=== PATIENT | female | born 1960 | race Caucasian/White ===

== ENCOUNTER → 2020-04-15 09:19 | Outpatient (BNVA) | payer OTHER, SELFPAY | PROVIDERS: PCP Internal Medicine; Referring Provider Internal Medicine; Visit Provider Physician Assistant | DX: E66.9 Obesity, unspecified (principal); Z68.39 Body mass index [BMI] 39.0-39.9, adult | CPT/HCPCS: 99202 ==

== ENCOUNTER → 2020-05-06 08:35 | Outpatient (BNVA) | payer OTHER, SELFPAY | PROVIDERS: PCP Internal Medicine; Referring Provider Internal Medicine; Visit Provider Dietitian, Registered | DX: Z76.89 Persons encountering health services in other specified circumstances (principal) ==

== ENCOUNTER → 2020-05-12 08:23 | Outpatient (BNVA) | payer OTHER, SELFPAY | PROVIDERS: PCP Internal Medicine; Referring Provider Internal Medicine; Visit Provider Physician Assistant | DX: Z76.89 Persons encountering health services in other specified circumstances (principal) ==

== ENCOUNTER → 2020-06-06 08:54 | Outpatient (BNVA) | payer OTHER, SELFPAY | PROVIDERS: PCP Internal Medicine; Visit Provider Physician Assistant | DX: Z76.89 Persons encountering health services in other specified circumstances (principal) ==

== ENCOUNTER → 2020-06-17 09:58 | Outpatient (BNVA) | payer OTHER, SELFPAY | PROVIDERS: PCP Internal Medicine; Visit Provider Internal Medicine Pulmonary Disease | DX: J84.10 Pulmonary fibrosis, unspecified (principal); Z99.81 Dependence on supplemental oxygen | CPT/HCPCS: 99202 ==

== ENCOUNTER → 2020-07-15 16:17 | Outpatient (BNVA) | payer OTHER, SELFPAY | PROVIDERS: PCP Internal Medicine; Visit Provider Surgery ==

== ENCOUNTER 2020-07-20 08:26 | Outpatient (REF) | payer OTHER, SELFPAY ==
--- NOTE | ~2020-07-20 | XR_ITS ---
EXAMINATION: XR CHEST CLINICAL INFORMATION: Obesity COMPARISON: None TECHNIQUE: 2 views of the chest were obtained. FINDINGS: The cardiac silhouette does not appear enlarged. Hilar and mediastinal contours are unremarkable. There lung volumes are low. There are increased interstitial markings. Appearance is questionable for an atypical interstitial pneumonia. Differential would include interstitial lung disease and interstitial pulmonary edema. There is no pleural effusion or pneumothorax. There are degenerative changes of the spine. XR/XR chest 2V IMPRESSION: Increased interstitial markings. Differential would include an atypical interstitial pneumonia, interstitial lung disease and interstitial pulmonary edema. Clinical correlation is recommended. Chest x-ray or chest CT follow-up may be helpful.
--- NOTE | 2020-07-20 09:17 | ECG_ITS ---
Test Reason : OBESITY Blood Pressure : / mmHG Vent. Rate : 077 BPM Atrial Rate : 077 BPM P-R Int : 128 ms QRS Dur : 096 ms QT Int : 406 ms P-R-T Axes : 017 066 -30 degrees QTc Int : 459 ms Normal sinus rhythm Nonspecific T wave abnormality Abnormal ECG No previous ECGs available Referred By: Zoran Correia Electronically Signed By:Nelson Hurt
[2020-07-20 09:50] LABS: MANUAL DIFF FLAG NO
[2020-07-20 10:04] LABS: Basophils Absolute Auto 0.1 X10*3/uL (0.0-0.2); Basophils Percent Auto 0.8 % (0-2); Eosinophils Absolute Auto 0.2 X10*3/uL (0.0-0.4); Eosinophils Percent Auto 2.5 % (0-4); Hematocrit 43.9 % (37-47); Hemoglobin 14.3 g/dl (12.0-16.0); Imm Gran Abs Auto 0.01 X10*3/uL (0.00-0.03); Imm Gran Pct Auto 0.2 % (0.0-0.4); Lymphocytes Absolute Auto 1.8 X10*3/uL (1.2-4.9); Lymphocytes Percent Auto 30.1 % (20-40); Mean Corpuscular HGB Conc 32.6 g/dl (31.0-35.0); Mean Corpuscular Hemoglobin 30.6 pg (27.0-33.0); Mean Corpuscular Volume 93.8 fL (80-98); Mean Platelet Volume 11.9 fL (9.4-12.3); Monocytes Absolute Auto 0.4 X10*3/uL (0.1-1.2); Neutrophils Absolute Auto 3.6 X10*3/uL (2.0-8.3); Neutrophils Percent Auto 59.4 % (45-73); Platelet Count 195 X10*3/uL (160-400); Red Blood Count 4.68 X10*6/uL (4.20-5.50); Red Cell Distribution Width 11.6 % (11.0-16.0)
[2020-07-20 10:23] LABS: Estimated Average Glucose 128 mg/dL; Hemoglobin A1c % 6.1 %
[2020-07-20 10:30] LABS: Alanine Aminotransferase 29 U/L (0-31); Albumin Level 4.2 g/dL (3.5-5.0); Alkaline Phosphatase 65 U/L (39-117); Anion Gap 13 (12-20); Aspartate Amino Transferase 29 U/L (5-31); Bilirubin Total 1.9 mg/dL (0.0-1.0); Blood Urea Nitrogen 24 mg/dL (9-16); C Reactive Protein 0.84 mg/dL (< or = 0.50); Calcium 9.4 mg/dL (8.4-10.2); Carbon Dioxide 28 mmol/L (22-29); Chloride 103 mmol/L (96-108); Cholesterol 176 mg/dL; Estimated Glomerular Filt Rate > 60; Glucose Random 169 mg/dL (60-115); HDL Cholesterol 45 mg/dL; LDL Cholesterol Calculated 101 mg/dl; Potassium 4.7 mmol/L (3.3-5.1); Sodium 139 mmol/L (135-145); Total Protein 7.4 g/dL (6.5-8.0); Triglycerides 152 mg/dL
[2020-07-20 10:53] LABS: Ferritin 106 ng/mL (10-250); TSH reflex Free T4 1.72 uIU/mL (0.32-4.0); Vitamin D 25-OH Total 27.8 ng/mL (>30)
[2020-07-20 11:06] LABS: Folate 16.9 ng/mL (> or = 4.0); Vitamin B12 887 pg/mL (200-900)
[2020-07-21 06:32] LABS: Insulin Level Total 23.9 uIU/mL
[2020-07-21 14:27] LABS: H Pylori Breath Test NOT DETECTED (NOT DETECTED)
[2020-07-22 10:37] LABS: Calcium (PTHI) 9.4 mg/dL (8.6-10.4); PTHI 75 pg/mL (14-64)
[2020-07-24 06:37] LABS: Vitamin B1 13 nmol/L (8-30)
[2020-07-25 02:31] LABS: Vitamin A 32 mcg/dL (38-98)
[2020-07-26 00:52] LABS: Zinc 79 mcg/dL (60-130)
== END 2020-07-20 08:27 | disposition home or self-care (01) ==
LOC: HO.LAB 08:26
PROVIDERS: PCP Internal Medicine; Visit Provider Surgery
DX: E66.9 Obesity, unspecified (principal); E78.5 Hyperlipidemia, unspecified; I25.10 Atherosclerotic heart disease of native coronary artery without angina pectoris; J84.10 Pulmonary fibrosis, unspecified; Z71.3 Dietary counseling and surveillance; Z99.81 Dependence on supplemental oxygen; Z68.37 Body mass index [BMI] 37.0-37.9, adult; Z11.0 Encounter for screening for intestinal infectious diseases
CPT/HCPCS: 36415; 71046; 80053; 80061; 82306; 82607; 82728; 82746; 83013; 83036; 83525; 83970; 84425; 84443; 84590; 84630; 85025; 86140; 93005; 99211

== ENCOUNTER → 2020-08-01 08:28 | Outpatient (BNVA) | payer OTHER, SELFPAY | PROVIDERS: PCP Internal Medicine; Visit Provider Surgery ==

== ENCOUNTER 2020-08-03 09:37 | Outpatient (REF) | payer OTHER, SELFPAY ==
--- NOTE | ~2020-08-03 | FL_ITS ---
EXAMINATION: XR GI SERIES CLINICAL INFORMATION: Obesity COMPARISON: None TECHNIQUE: Upper GI was performed using thin and thick barium and effervescent granules. FINDINGS: Esophageal motility is normal. There is a small sliding-type hiatal hernia. There is gastroesophageal reflux. The stomach and duodenum are normal-appearing. No fold thickening, mass, ulcer or stricture is seen. FLUOROSCOPY TIME: 1.4 minutes DOSE AREA PRODUCT: 15.5 prado per centimeter squared, total dose 53 mgy and 31 saved fluoroscopic images FL/FL upper GI series IMPRESSION: Small sliding-type hiatal hernia and gastroesophageal reflux.
--- NOTE | ~2020-08-03 | US_ITS ---
EXAMINATION: US COMPLETE ABDOMEN WITH LIVER ELASTOGRAPHY CLINICAL INFORMATION: Obesity COMPARISON: None. TECHNIQUE: Real-time imaging of the abdominal viscera. Noninvasive ultrasound liver fibrosis assessment is performed using Papa ElastPQ point quantification shear wave elastography (pSWE) with a C5-2 MHz transducer. Multiple elastography samples are obtained. FINDINGS: PANCREAS: Not well visualized due to bowel gas ABDOMINAL AORTA: The proximal, middle, and distal aortic segments are normal in caliber. INFERIOR VENA CAVA: Visualized portions are normal. LIVER: Liver echotexture is increased. The liver demonstrates normal size and contour. No focal lesion or intrahepatic biliary duct dilatation. The right lobe measures 14 cm in length. The left lobe measures 8 cm in length. Portal flow is normal/hepatopedal. Shear wave liver elastography median stiffness is 1.2 m/s (reference: normal median stiffness is 1.3 m/s or less). IQR/median stiffness to assess sampling precision is 0.3 (reference: good quality data set is IQR/median stiffness of 0.15 or less). GALLBLADDER: Normal. The gallbladder is physiologically distended without evidence of stones, sludge, polyps, wall thickening or pericholecystic fluid. COMMON BILE DUCT: Normal in caliber measuring 0.4 cm in diameter. RIGHT KIDNEY: There is a 1.7 x 1.5 x 1.8 cm cyst midpole. No hydronephrosis. No renal calculi or focal mass. The kidney measures 11.5 cm in maximum dimension. LEFT KIDNEY: Normal. No hydronephrosis. No renal calculi or focal parenchymal lesions. The kidney measures 10 cm in maximum dimension. SPLEEN: Normal. The spleen measures 10 cm in maximum dimension. FREE FLUID: None. US/US abdomen comp w elastography IMPRESSION: 1. Echogenic liver probably representing fatty infiltration. Limited visualization of the pancreas. Small left renal cyst. 2. Liver elastography: Slightly limited due to sampling error but normal. REFERENCE: Society of Radiologists in Ultrasound Liver Stiffness Thresholds (2020): LIVER STIFFNESS THRESHOLDS: *Liver Stiffness equal or less than 1.3 m/s: High probability of being normal. *Liver Stiffness less than 1.7 m/s: In the absence of other known clinical signs, rules out compensated advanced chronic liver disease. *Liver Stiffness 1.7-2.1 m/s: Suggestive of compensated advanced chronic liver disease but need further test for confirmation. *Liver Stiffness over 2.1 m/s: Rules in compensated advanced chronic liver disease. *Liver Stiffness over 2.4 m/s: Suggestive of clinically significant portal hypertension. QUALITY OF DATA SET: *IQR/Median value equal or less than 0.15 implies a quality data set. *IQR/Median value over 0.15 implies a poor quality data set. SIGNIFICANT CHANGE FROM PRIOR EXAM: Significant change if liver stiffness measurement is 10% or greater from prior exam. OTHER CONSIDERATIONS: The stage of liver fibrosis may be overestimated in the setting of acute hepatitis, liver inflammation, elevated liver function tests, hepatic vascular congestion, obstructive cholestasis, non-fasting state, and infiltrative diseases such as amyloidosis and lymphoma. In some patients with NAFLD, the liver stiffness thresholds for compensated advanced chronic liver disease may be lower. In causes other than viral hepatitis and NAFLD, liver stiffness thresholds are not well established.
== END 2020-08-03 09:38 | disposition home or self-care (01) ==
LOC: HO.US 09:37
PROVIDERS: Visit Provider Surgery
DX: Z01.818 Encounter for other preprocedural examination (principal); Z99.81 Dependence on supplemental oxygen; J84.10 Pulmonary fibrosis, unspecified; I25.10 Atherosclerotic heart disease of native coronary artery without angina pectoris; E78.5 Hyperlipidemia, unspecified; E66.01 Morbid (severe) obesity due to excess calories; K21.9 Gastro-esophageal reflux disease without esophagitis; Z68.37 Body mass index [BMI] 37.0-37.9, adult
CPT/HCPCS: 74240; 76705; 76981

== ENCOUNTER → 2020-08-18 08:14 | Outpatient (BNVA) | payer OTHER, SELFPAY | PROVIDERS: PCP Internal Medicine; Visit Provider Dietitian, Registered ==

== ENCOUNTER → 2020-08-22 07:33 | Outpatient (BNVA) | payer OTHER, SELFPAY | PROVIDERS: PCP Internal Medicine; Visit Provider Surgery ==

== ENCOUNTER → 2020-08-26 10:39 | Outpatient (BNVA) | payer OTHER, SELFPAY | PROVIDERS: PCP Internal Medicine; Visit Provider Dietitian, Registered ==

== ENCOUNTER → 2020-09-05 07:28 | Outpatient (BNVA) | payer OTHER, SELFPAY | PROVIDERS: PCP Internal Medicine; Visit Provider Surgery ==

== ENCOUNTER 2020-09-06 07:36 | Outpatient (REF) | payer OTHER, SELFPAY ==
--- NOTE | 2020-09-06 17:26 | PFT_ITS ---
Forced vital capacity and FEV1 are both moderately reduced. FEV1/FVC ratio is normal. XTH38-26 is normal. MVV slightly reduced. Post bronchodilator therapy, there is a slight improvement in [id number] and MVV. Total lung capacity and residual volume are moderately decreased. Diffusion capacity is markedly decreased. CONCLUSION: Findings are consistent with moderately severe restrictive pulmonary disorder. No significant obstructive airway disorder. The response to bronchodilator therapy is minimal. Clinical correlation is recommended. MD SONIA Lee/MODL / [id number]
== END 2020-09-06 07:37 | disposition home or self-care (01) ==
LOC: HO.RESP 07:36
PROVIDERS: PCP Internal Medicine; Visit Provider Internal Medicine Pulmonary Disease
DX: J84.10 Pulmonary fibrosis, unspecified (principal); E66.9 Obesity, unspecified; I25.10 Atherosclerotic heart disease of native coronary artery without angina pectoris; Z68.37 Body mass index [BMI] 37.0-37.9, adult
CPT/HCPCS: 94060; 94727; 94729

== ENCOUNTER 2020-09-08 | Outpatient (REF) | payer OTHER, SELFPAY ==
[2020-09-06 08:38] LABS: MANUAL DIFF FLAG NO
[2020-09-06 08:43] LABS: Basophils Absolute Auto 0.1 X10*3/uL (0.0-0.2); Basophils Percent Auto 0.8 % (0-2); Eosinophils Absolute Auto 0.3 X10*3/uL (0.0-0.4); Eosinophils Percent Auto 4.8 % (0-4); Hematocrit 42.6 % (37-47); Imm Gran Abs Auto 0.01 X10*3/uL (0.00-0.03); Imm Gran Pct Auto 0.2 % (0.0-0.4); Lymphocytes Absolute Auto 2.3 X10*3/uL (1.2-4.9); Lymphocytes Percent Auto 38.5 % (20-40); Mean Corpuscular HGB Conc 32.9 g/dl (31.0-35.0); Mean Corpuscular Hemoglobin 31.2 pg (27.0-33.0); Mean Corpuscular Volume 94.9 fL (80-98); Mean Platelet Volume 12.2 fL (9.4-12.3); Monocytes Absolute Auto 0.6 X10*3/uL (0.1-1.2); Neutrophils Absolute Auto 2.7 X10*3/uL (2.0-8.3); Neutrophils Percent Auto 45.7 % (45-73); Platelet Count 181 X10*3/uL (160-400); Red Blood Count 4.49 X10*6/uL (4.20-5.50); Red Cell Distribution Width 11.7 % (11.0-16.0); White Blood Count 5.9 X10*3/uL (4.8-10.8)
[2020-09-06 08:51] LABS: INTERNATIONAL NORM RATIO 1.1 (0.9-1.1)
[2020-09-06 08:53] LABS: Partial Thromboplastin Time 35.6 SEC (24.1-38.0)
[2020-09-06 09:02] LABS: Estimated Average Glucose 100 mg/dL; Hemoglobin A1c % 5.1 %
[2020-09-06 09:17] LABS: Alanine Aminotransferase 22 U/L (0-31); Albumin Level 4.2 g/dL (3.5-5.0); Alkaline Phosphatase 54 U/L (39-117); Anion Gap 12 (12-20); Aspartate Amino Transferase 27 U/L (5-31); Bilirubin Total 2.2 mg/dL (0.0-1.0); Blood Urea Nitrogen 17 mg/dL (9-16); C Reactive Protein 0.98 mg/dL (< or = 0.50); Calcium 9.3 mg/dL (8.4-10.2); Carbon Dioxide 30 mmol/L (22-29); Chloride 104 mmol/L (96-108); Cholesterol 179 mg/dL; Estimated Glomerular Filt Rate > 60; Glucose Random 116 mg/dL (60-115); HDL Cholesterol 39 mg/dL; LDL Cholesterol Calculated 113 mg/dl; Potassium 4.6 mmol/L (3.3-5.1); Sodium 141 mmol/L (135-145); Total Protein 7.2 g/dL (6.5-8.0); Triglycerides 139 mg/dL
[2020-09-06 09:25] LABS: TSH reflex Free T4 1.14 uIU/mL (0.32-4.0)
[2020-09-07 08:57] LABS: Insulin Level Total 12.3 uIU/mL
--- NOTE | 2020-09-08 12:57 | HO.ANESPROP2 ---
HPI - Anesthesia Eval Consult details Narrative: 60yo F for Gastrectomy Sleeve Weight loss required for lung transplant. High risk preop evals by Cardiol and Pulm. 09/08/20 High Risk anesthesia discussed with pt by this provider and Dr Larose. Pt verbalized full understanding. [facility] Active Problems Active Problems: All Active Problems (Updated 09/08/20 @ 12:54 by Vi Vega) Interstitial pulmonary fibrosis (Acute) Supplemental oxygen dependent (Acute) BMI 37.0-37.9, adult (Acute) Preoperative cardiovascular examination (Acute) Essential hypertension (Acute) Non-rheumatic aortic regurgitation (Acute) Atherosclerotic cardiovascular disease (Acute) Coronary artery disease (Acute) Hyperlipidemia (Acute) Obesity (BMI 30-39.9) (Acute) Past Medical History Medical History (Updated 09/08/20 @ 12:54 by Vi Vega) Asbestos exposure Atherosclerotic cardiovascular disease CHF (congestive heart failure) Coronary artery disease DVT of lower extremity, bilateral Essential hypertension Fibromyalgia Hyperlipidemia Interstitial lung disease Lung fibrosis Non-rheumatic aortic regurgitation Obesity (BMI 30-39.9) On beta cabrera at home On home oxygen therapy Type 2 diabetes mellitus Family History Family History Mother Liver disease Diabetes Father No problems noted. Brother No problems noted. Brother No problems noted. Brother No problems noted. Brother No problems noted. Sister No problems noted. Sister No problems noted. Sister No problems noted. Sister No problems noted. Son No problems noted. Daughter Hypertension Surgical History Surgical History Hx of cardiac cath Hx of hysterectomy Hx of stentless aortic valve replacement Status post partial removal of lung Status post phlebectomy Social History Social History Alcohol intake: former Smoking Status: Never smoker Second Hand Smoke Exposure: No Meds Allergies Allergy/AdvReac Type Severity Reaction Status Date / Time No Known Allergies Allergy Verified 09/05/20 08:31 Home Medications Medication Instructions Recorded Confirmed Last Taken Type acetaminophen 500 mg tablet 500 mg PO TID PRN 04/15/20 09/08/20 Unknown History atorvastatin 80 mg tablet 80 mg PO DAILY 04/15/20 09/08/20 Unknown History blood sugar diagnostic #10 ea 04/15/20 09/08/20 Unknown History blood-glucose meter #1 ea 04/15/20 09/08/20 Unknown History furosemide 20 mg tablet 20 mg PO DAILY 04/15/20 09/08/20 Unknown History glipizide 10 mg tablet 10 mg PO BID 04/15/20 09/08/20 Unknown History isosorbide mononitrate 30 mg 30 mg PO DAILY 04/15/20 09/08/20 Unknown History tablet,extended release 24 hr lancets 28 gauge #100 ea 04/15/20 09/08/20 Unknown History lancets 30 gauge #100 ea 04/15/20 09/08/20 Unknown History losartan 100 mg tablet 100 mg PO DAILY 04/15/20 09/08/20 Unknown History metoprolol tartrate 25 mg tablet 25 mg PO DAILY 04/15/20 09/08/20 Unknown History nintedanib 150 mg capsule 150 mg PO Q12H 07/15/20 09/08/20 Unknown History Exam Exam Date and Time: September 08, 2020 1257 Pertinent Lab Results Pertinent Lab Results: Laboratory Tests 09/06/20 09/06/20 09/06/20 07:45 07:45 07:45 WBC 5.9 RBC 4.49 Hgb 14.0 Hct 42.6 MCV 94.9 MCH 31.2 MCHC 32.9 RDW 11.7 Plt Count 181 MPV 12.2 Immature Gran % (Auto) 0.2 Neut % (Auto) 45.7 Lymph % (Auto) 38.5 [place] % (Auto) 10.0 Eos % (Auto) 4.8 H Baso % (Auto) 0.8 Lymph # (Auto) 2.3 [place] # (Auto) 0.6 Eos # (Auto) 0.3 Baso # (Auto) 0.1 Abs Immat Gran (auto) 0.01 Absolute Neuts (auto) 2.7 Absolute Nucleated RBC 0.000 Nucleated RBC % (auto) 0.0 PT 13.0 INR 1.1 APTT 35.6 Sodium 141 Potassium 4.6 Chloride 104 Carbon Dioxide 30 H Anion Gap 12 BUN 17 H Creatinine 0.78 Estim Creat Clear Calc TNP Estimated GFR > 60 Random Glucose 116 H Estimat Average Glucose Hemoglobin A1c % Total Insulin Calcium 9.3 Total Bilirubin 2.2 H AST 27 ALT 22 Alkaline Phosphatase 54 C-Reactive Protein 0.98 H Total Protein 7.2 Albumin 4.2 Triglycerides 139 Cholesterol 179 LDL Cholesterol, Calc 113 HDL Cholesterol 39 TSH 1.14 Blood Type Antibody Screen 09/06/20 09/06/20 09/06/20 07:45 07:45 07:45 WBC RBC Hgb Hct MCV MCH MCHC RDW Plt Count MPV Immature Gran % (Auto) Neut % (Auto) Lymph % (Auto) [place] % (Auto) Eos % (Auto) Baso % (Auto) Lymph # (Auto) [place] # (Auto) Eos # (Auto) Baso # (Auto) Abs Immat Gran (auto) Absolute Neuts (auto) Absolute Nucleated RBC Nucleated RBC % (auto) PT INR APTT Sodium Potassium Chloride Carbon Dioxide Anion Gap BUN Creatinine Estim Creat Clear Calc Estimated GFR Random Glucose Estimat Average Glucose 100 Hemoglobin A1c % 5.1 Total Insulin 12.3 Calcium Total Bilirubin AST ALT Alkaline Phosphatase C-Reactive Protein Total Protein Albumin Triglycerides Cholesterol LDL Cholesterol, Calc HDL Cholesterol TSH Blood Type A Positive Antibody Screen NEGATIVE Narrative Narrative: EKG 07/2020 Vent. Rate : 077 BPM Atrial Rate : 077 BPM P-R Int : 128 ms QRS Dur : 096 ms QT Int : 406 ms P-R-T Axes : 017 066 -30 degrees QTc Int : 459 ms Normal sinus rhythm Nonspecific T wave abnormality Abnormal ECG No previous ECGs available Stress ECHO 08/2020 No inducible wall motion abnormalities suggestive of CAD Normal dobutamine stress echo Echo 07/2019 Normal LV size and systolic function. Mild concentric LVH. Normal RWM. LVEF is 60% Normal RV size and function Mild to mod (1-2+) pulmonic insufficiency Mild [place]-valvular aortic insufficiency see; unclear etiology. Differential would include congenital abnormality such as sinus of valsava fistula. PFT 08/2020 Forced vital capacity and FEV1 are both moderately reduced. FEV1/FVC ratio is normal. [id number] is normal. MVV slightly reduced. Post bronchodilator therapy, there is a slight improvement in FLY04-05 and MVV. Total lung capacity and residual volume are moderately decreased. Diffusion capacity is markedly decreased. CONCLUSION: Findings are consistent with moderately severe restrictive pulmonary disorder. No significant obstructive airway disorder. The response to bronchodilator therapy is minimal. Clinical correlation is recommended. Assessment and Plan Assessment Anesthesia Assessment: Anesthesia Plan Discussed and PAT Visit
[2020-09-08 13:00] VITALS: BMI 35.9
[2020-09-08 13:07] VITALS: BP 95/57; PULSE 72; RESP 20; O2SAT 97
== END 2020-09-08 00:01 | disposition home or self-care (01) ==
LOC: HO.PAT
PROVIDERS: PCP Internal Medicine; Visit Provider Surgery
DX: Z01.818 Encounter for other preprocedural examination (principal); E66.9 Obesity, unspecified; Z68.37 Body mass index [BMI] 37.0-37.9, adult; J84.10 Pulmonary fibrosis, unspecified; I25.10 Atherosclerotic heart disease of native coronary artery without angina pectoris
CPT/HCPCS: 36415; 80053; 80061; 83036; 83525; 84443; 85025; 85610; 85730; 86140; 86850; 86900

== ENCOUNTER → 2020-09-08 10:59 | Outpatient (BNVA) | payer OTHER, SELFPAY | PROVIDERS: PCP Internal Medicine; Visit Provider Internal Medicine | DX: Z01.810 Encounter for preprocedural cardiovascular examination (principal); I25.10 Atherosclerotic heart disease of native coronary artery without angina pectoris; I35.1 Nonrheumatic aortic (valve) insufficiency; I10 Essential (primary) hypertension | CPT/HCPCS: 93005; 99202 ==

== ENCOUNTER → 2020-09-09 14:04 | Outpatient (BNVA) | payer OTHER, SELFPAY | PROVIDERS: PCP Internal Medicine; Visit Provider Dietitian, Registered ==